=== PATIENT | female | born 1930 | race Native Hawaiian/Other Pacific Islander ===

== ENCOUNTER 2016-02-20 12:20 | Outpatient (CLI) | payer OTHER, MEDICARE ==
[~2016-02-20 12:20] MED LIST: AMLO2.5T PO; HYZAAR1 TA1 PO; LORAZEPAM1 MG PO; ONDA4TAB3 PO; PREDNISONE1 MG PO; PROAIR HFA IN; SENNA1 TAB PO; ULTRAM ER100 MG PO; VICODIN HP1 TA1 PO; ZOLOFT25 MG PO; [UNRECOGNIZED DRUG - OTHER] PO
== END 2016-02-20 19:16 | disposition home or self-care (01) ==
LOC: LAB 12:20
DX: I10 Essential (primary) hypertension (principal); N39.0 Urinary tract infection, site not specified; Z48.3 Aftercare following surgery for neoplasm
CPT/HCPCS: 81000; 87088

== ENCOUNTER 2016-07-10 21:35 | Outpatient (CLI) | payer OTHER, MEDICARE | END 2016-07-10 22:20 | disposition short-term general hospital (02) | LOC: AMB 21:35 | DX: R41.82 Altered mental status, unspecified (principal); R53.1 Weakness | CPT/HCPCS: A0425; A0427 ==

== ENCOUNTER 2016-09-10 08:12 | Outpatient (CLI) | payer OTHER, MEDICARE ==
[2016-09-10] MEDS ORDERED: TIZA4TAB5 PO (09:10)
[2016-09-10] MEDS ORDERED: MOBIC15 MG PO (09:10)
[2016-09-10] MEDS ORDERED: LYRICA225 MG OR (09:11)
[2016-09-10] MEDS ORDERED: POTA20TA4 PO (09:12)
[2016-09-10] MEDS ORDERED: DULO60CA2 OR (09:13)
[2016-09-10] MEDS ORDERED: DONE5TAB PO (09:14)
== END 2016-09-10 08:19 | disposition short-term general hospital (02) ==
LOC: AMB 08:12
DX: R40.20 Unspecified coma (principal); I48.91 Unspecified atrial fibrillation
CPT/HCPCS: A0425; A0427

== ENCOUNTER 2016-09-10 08:19 | Inpatient (IN) | payer OTHER, MEDICARE ==
[~2016-09-10] VITALS: Ht 157.5 cm; Wt 85.4 kg
[2016-09-10] VITALS (17 sets, daily range): BP systolic 89–114; BP diastolic 54–84; TEMP 97.9–102.2; Ht 157.5 cm; Wt 85.4 kg
[2016-09-10 09:06] LABS: PLATELET COUNT 205 K/uL (152-353)
[2016-09-10 09:08] LABS: POTASSIUM 3.4 mmol/L (3.6-5.2)
[2016-09-10] MEDS ORDERED: MOBIC15 MG PO (09:10)
[2016-09-10] MEDS ORDERED: TIZA4TAB5 PO (09:10)
[2016-09-10] MEDS ORDERED: LYRICA225 MG OR (09:11)
[2016-09-10] MEDS ORDERED: POTA20TA4 PO (09:12)
[2016-09-10] MEDS ORDERED: DULO60CA2 OR (09:13)
[2016-09-10] MEDS ORDERED: DONE5TAB PO (09:14)
--- NOTE | 2016-09-10 13:15 | NUR ---
RECEIVED PT TO ICU 1 VIA STRETCHER. RECEIVED REPORT FROM AMBER OLSON RN. TRANSFERRED PT TO ICU BED. PT AWAKE AND ASKING WHAT WE ARE DOING. ORIENTED PT TO ROOM SURROUNDINGS. PLACED PT ON MONITORS. A FIB NOTED ON THE MONITOR. HR 90-130'S. O2 @ 2L/NC. V/S STABLE. O2 @ 2L/NC. PT HAS A PAC TO [facility], NS @ 83ML/HR. PT ADMITTED WITH A FIB WITH RVR, SEPSIS, PNEUMONIA. AX TEMP 98.6.
--- NOTE | 2016-09-10 13:30 | NUR ---
16F TANNER CATH INSERTED VIA [employer] PER DANNY HOROWITZ RN. CLEAR YELLOW URINE OUTPUT NOTED. PLACED TO BSD.
--- NOTE | 2016-09-10 15:00 | NUR ---
LABS DRAWN. PT WILL OPEN EYES WHEN NAME IS CALLED. PT IS VERY DROWSY. NOSE SWAB DONE. PT DID NOT RESPOND TO SWAB.
--- NOTE | 2016-09-10 16:00 | NUR ---
AT BEDSIDE. PT RESTING QUIETLY WITH EYES CLOSED. WILL CONTINUE TO MONITOR.
[2016-09-10 16:19] LABS: PARTIAL THROMBOPLASTIN TIME 24.2 SECONDS (24.5-33.6)
--- NOTE | 2016-09-10 20:04 | NUR ---
RCD PT ROUSES TO NAME SPEECH CLEAR MONITOR AT FIB O2 AT 2L NC RESTING. HOB 45 TANNER CLEAR YELLOW.
--- NOTE | 2016-09-10 21:00 | NUR ---
TURNED AND REPOSITIONED SPEECH CLEAR MONITOR AFIB O2 100%. NO C/O AT THIS TIME .
--- NOTE | 2016-09-10 23:31 | NUR ---
DR SIU CALLED NEW ORDERS ATTEMPTED TO START IV UN SUCESSFAL BLOOD TO LAB PT,PTT
[2016-09-10 23:50] LABS: PARTIAL THROMBOPLASTIN TIME 30.2 SECONDS (24.5-33.6)
[2016-09-11] VITALS (23 sets, daily range): BP systolic 88–125; BP diastolic 47–88; TEMP 98.1–100.6
--- NOTE | 2016-09-11 00:30 | NUR ---
ATTEMPTED X8 SITE CARE GIVEN DR SIU NOTIFIED D/C HEPARIN RESTARTED LOVENOX. PT MAURO PROCEDURE.
--- NOTE | 2016-09-11 01:18 | NUR ---
AWAKE /ALERT SPEECH CLEAR MOVING ALL EXT WEAK . HOB ELEVATED 45
--- NOTE | 2016-09-11 02:00 | NUR ---
TURNED AND REPOSITIONED ALERT WHEN ROUSED DENIES PAIN OR SOB
--- NOTE | 2016-09-11 04:00 | NUR ---
LEGS AND FEET ELEVATED ON PILLOWS FOLLOWS COMMANDS MONITOR AFIF 88 O2 AT 2L N/C .
--- NOTE | 2016-09-11 05:32 | NUR ---
RESP TX GIVEN MAURO RESTNG AT PRESENT
[2016-09-11 06:40] LABS: PLATELET COUNT 187 K/uL (152-353)
--- NOTE | 2016-09-11 07:00 | NUR ---
REPORT FROM FROM PM STAFF. PT RESTING IN LF,WANTS HER CALLED, HER HAS CALLED TO CK ON PT,INFORMED HER THAT HE WOULD BE UP HERE TO SEE HER SOON.
[2016-09-11 07:03] LABS: POTASSIUM 3.7 mmol/L (3.6-5.2)
--- NOTE | 2016-09-11 10:09 | NUR ---
SPEECH IN TO EVAL PT. WILL BE BACK TO [facility] AT LUNCH.
--- NOTE | 2016-09-11 11:52 | NUR ---
DR. SIU HERE TO SEE PT.
--- NOTE | 2016-09-11 12:05 | NUR ---
DR SIU IN TO SEE PT.NEW ORDERS.
--- NOTE | 2016-09-11 12:13 | NUR ---
& FAMILY IN TO VISIT.
--- NOTE | 2016-09-11 13:20 | NUR ---
GUANACO HOLLINGSWORTH LABOR RELATIONS OFFICER HERE FOR ECHO.
--- NOTE | 2016-09-11 13:51 | NUR ---
ECHO DONE PER RT WINTER HOLLINGSWORTH & SPEECH AT BS CHECKING PT'S SWALLOWING.
--- NOTE | 2016-09-11 13:53 | NUR ---
DANIEL ANGLIN HERE TO EVALUATE PT.
--- NOTE | 2016-09-11 17:02 | NUR ---
PT RESTING QUIETLY WITH EYES CLOSED. AMIODORONE DRIP INFUSING WITHOUT PROBLEMS PER DR'S ORDERS. DENIES PAIN AT THIS TIME.
[2016-09-11 19:09] LABS: POTASSIUM 3.4 mmol/L (3.6-5.2)
--- NOTE | 2016-09-11 19:30 | NUR ---
RESPIRATORY THERAPIST AT BEDSIDE FOR TREATMENT.
--- NOTE | 2016-09-11 19:53 | NUR ---
PM ASSESSMENT COMPLETED. PT TALKING WITH NURSE, CONFUSED AT TIMES. SIPS OF WATER GIVEN. PT TOLERATED WELL.
--- NOTE | 2016-09-11 22:36 | NUR ---
PT C/O BACK PAIN. PAIN SCALE 7. MEDICATED WITHDILAUDID 0.5MG IV ORDERED
[2016-09-12] VITALS (21 sets, daily range): BP systolic 82–139; BP diastolic 42–89; TEMP 98–99.2
--- NOTE | 2016-09-12 | NUR ---
PT RESTING QUIETLY PAST PAIN MEDICATION. RESP EVEN AND UNLABORED.
--- NOTE | 2016-09-12 05:38 | NUR ---
LABS DRAWN FROM IV PORT. TO LAB
[2016-09-12 06:28] LABS: POTASSIUM 3.2 mmol/L (3.6-5.2)
[2016-09-12 06:34] LABS: PLATELET COUNT 175 K/uL (152-353)
--- NOTE | 2016-09-12 07:39 | NUR ---
PT C/O PAIN IN LEGS 'WHEN MOVED', PT ASSISTED TO TURN FOR PERICARE SM LOOSE YELLOW BM. PT MEDICATED WITH PO MEDS PER DRS ORDERS.
--- NOTE | 2016-09-12 09:15 | NUR ---
PT SITTING UP IN BED FEEDING SELF BREAKFAST AFTER TRAY WAS SET UP FOR PT. 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
--- NOTE | 2016-09-12 10:57 | NUR ---
PT C/O PAIN IN LEGS & HIPS ,MEDICATED WITH DILAUDID IV PER DR'S ORDER. PT WITH INCONTINENT BM,SPECIMEN OBTAINED & TO LAB,PERICARE, CALAZIME PROTECTIVE BARRIER APPLIED TO PERIAREA.
--- NOTE | 2016-09-12 11:21 | NUR ---
PT REQUEST TO TALK WITH HER NEPHEW,PHONE DIALED NUMBER PT REQUEST PER KELVIN FERNANDEZ RN. PT TALKING WITH NEPHEW.
--- NOTE | 2016-09-12 11:45 | NUR ---
DR SIU IN TO SEE PT.NEW ORDERS.
--- NOTE | 2016-09-12 12:12 | NUR ---
CONSENT OBTAINED FOR BLOOD TRANSFUSION FROM PT WITH AT ,P TINSISTED ON SIGNING HERSELF,SIGNATURE ALMOST UNREADABLE. STATES,'SHE'S HAD BLOOD BEFORE,SHE HAD SOME A FEW WEEKS AGO IN [place]'.
--- NOTE | 2016-09-12 14:25 | NUR ---
FIRST UNIT BLOOD STARTED EXPLAINED PROCEDURE TO PT. MAURO WELL IV FLUIDS STOPPED, WHILE BLOOD INFUSING. PT RESTING QUIETLY PAIN MEDS EFFECTIVE.
--- NOTE | 2016-09-12 15:16 | NUR ---
PT MEDICATED WITH PO AMIODARONE 100MG PER KELVIN FERNANDEZ RN. AMIODARONE DRIP STOPPED PER ORDER.
--- NOTE | 2016-09-12 16:45 | NUR ---
NOTED PT CONFUSED AT TIMES REORIENTED TO HOSPITAL AND ICU. CLOSE FRIEND HERE VISITED, ATTEMPT TO REORIENT PATIENT. TALKING WITH PT ATTEMPT TO KEEP HER CALM.
--- NOTE | 2016-09-12 17:10 | NUR ---
2ND BLOOD STARTED EXPLAINED PROCEDURE TO PT. PT RESTING QUIETLY. NO BLEEDING NOTED.
--- NOTE | 2016-09-12 18:31 | NUR ---
PT WITH INCONTINENT BM,PERICARE,GOWN CHANGE. REFUSES TO EAT SUPPER AT THIS TIME,'I WILL LATER'.
--- NOTE | 2016-09-12 19:37 | NUR ---
PT ASK FOR HER PM MEDICATIONS AND HER PAIN MED. PT WAS MEDICATED WITH DILAUDID 0.5 IVSP. PT WAS CLEANED. NO SKIN BREAKDOWN NOTED TO BUTTOCKS. INCONTINENT OF BM. PT WAS REPSOTIONED IN BED.
[2016-09-13] VITALS (15 sets, daily range): BP systolic 88–143; BP diastolic 46–92; TEMP 97.6–98.8
--- NOTE | 2016-09-13 03:03 | NUR ---
PT INCONTINENT OF STOOL. PT WAS CLEANED. PT BUTTOCKS WITH NO SKIN BREAKDOWN. CALAZIME APPLIED. PT COMPLAINED OF PAIN AND WAS MEDICATED WITH DILAUDID 0.5 MG IVSP GIVEN
[2016-09-13 06:53] LABS: PLATELET COUNT 174 K/uL (152-353)
[2016-09-13 07:55] LABS: POTASSIUM 3.8 mmol/L (3.6-5.2)
--- NOTE | 2016-09-13 09:00 | NUR ---
ASSSITED WITH POSITION CHANGE. PT INC OF LIQUID STOOL, CLEANED TURNED AMADA CARE DONE. PT ATE 25 BREAKFAST, STATES THAT SHE HAS BEEN HAVING LIQUID STOOL AFTER EATING WILL CONTINUE TO MONITOR. NOTED MILD CONFUSION.
--- NOTE | 2016-09-13 11:33 | NUR ---
RESTING QUIETLY NO ACUTE DISTRESS, BLOOD SUGAR 109.
--- NOTE | 2016-09-13 15:20 | NUR ---
DR SIU AT BS
--- NOTE | 2016-09-13 17:45 | NUR ---
PT INCONT OF STOOL, PT STATES THAT SHE DOESNT KNOW WHEN THE STOOL IS COMING OUT. STOOL APPEARS TO BECOMING FROM THE VAGINAL AREA AT TIMES, STOOL ALSO NOTED AT THE ANUS. PT HAS HAD VAGINAL CANCER, HAS NEVER BEEN TOLD THAT SHE HAS A FISTULA AND IS NOT AWARE THAT SHE HAS EVER HAD STOOL COMING FROM THIS AREA
--- NOTE | 2016-09-13 18:30 | NUR ---
PT TRANSFERRED TO MED SURG RM 1109. PT AWAKE. NO C/O AT THIS TIME. CONT TO BE IN A-FIB. HR 88-110
--- NOTE | 2016-09-13 18:36 | NUR ---
R CW PAC INTACT, FLUIDS INFUSING W/O DIFF. TANNER TO BSD.
[2016-09-14] VITALS: BP 122/54; TEMP 97.6
[2016-09-14 04:00] VITALS: BP 138/86; TEMP 97.6
[2016-09-14 05:27] LABS: PLATELET COUNT 181 K/uL (152-353)
[2016-09-14 05:44] LABS: POTASSIUM 3.7 mmol/L (3.6-5.2)
[2016-09-14 08:00] VITALS: BP 129/63; TEMP 97.8
[2016-09-14 12:00] VITALS: BP 137/58; TEMP 98.9
--- NOTE | 2016-09-14 12:15 | NUR ---
DC INSTRUCTIONS GIVEN TO PT AND . INSTRUCTED TO MAKE FOLLOW UP APPTS. SAID THEY HAD APPT WITH CANCER DOCTOR AND INTERNET NETWORK SPECIALIST. INSTRUCTED TO MAKE FOLLOW UP WITH PCP IN 3-5 DAYS. IV DC'D WITH CANNULA INTACT AND SITE CARE PROVIDED. PAC FLUSHED WITH NS AND HEPARIN PER PROTOCOL. DC'D AND SITE CARE PROVIDED.
--- NOTE | 2016-09-14 14:00 | NUR ---
PT LEFT VIA WC AT THIS TIME. NAD NOTED
== END 2016-09-14 13:55 | disposition home or self-care (01) | DRG 872 ==
LOC: ED 08:19 → ICU 11:14 → MED/SURG 09-13 18:00
PROVIDERS: Internal Medicine
PROC: 30243N1 Transfusion of Nonautologous Red Blood Cells into Central Vein, Percutaneous Approach (ICD-10-PCS; principal; 2016-09-12)
DX: A40.1 Sepsis due to streptococcus, group B (principal); N17.9 Acute kidney failure, unspecified; I48.91 Unspecified atrial fibrillation; I95.89 Other hypotension; D53.9 Nutritional anemia, unspecified; B95.1 Streptococcus, group B, as the cause of diseases classified elsewhere; R50.9 Fever, unspecified; M79.7 Fibromyalgia; J44.9 Chronic obstructive pulmonary disease, unspecified; I12.9 Hypertensive chronic kidney disease with stage 1 through stage 4 chronic kidney disease, or unspecified chronic kidney disease; N18.3 Chronic kidney disease, stage 3 (moderate)
CPT/HCPCS: 36415; 36430; 36591; 36600; 51702; 80048; 80053; 80202; 81000; 82272; 82550; 82570; 82607; 82747; 82805; 82962; 83605; 83690; 83735; 83880; 84300; 84443; 84484; 85027; 85379; 85610; 85651; 85730; 86140; 86850; 86900; 86901; 86922; 87015; 87040; 87045; 87070; 87077; 87185; 87186; 87205; 87328; 87329; 87899; 93005; 93306; 94640; 94664; 94760; 96361; 96365; 96366; 96372; 99285; J0132; J0282; J1170; J1642; J1644; J1650; J2543; J3475; J3490; P9016

== ENCOUNTER 2016-11-06 13:03 | Outpatient (CLI) | payer OTHER, MEDICARE ==
[~2016-11-06 13:03] MED LIST changes: +DONE5TAB PO; +DULO60CA2 OR; +LYRICA225 MG OR; +MOBIC15 MG PO; +POTA20TA4 PO; +TIZA4TAB5 PO
== END 2016-11-06 19:08 | disposition home or self-care (01) ==
LOC: LAB 13:03
DX: N39.0 Urinary tract infection, site not specified (principal)
CPT/HCPCS: 81000; 87077; 87086; 87088; 87186

== ENCOUNTER 2016-12-13 08:21 | Inpatient (IN) | payer OTHER, MEDICARE ==
[~2016-12-13] VITALS: Ht 157.5 cm; Wt 74.8 kg
[2016-12-13] VITALS (7 sets, daily range): BP systolic 96–137; BP diastolic 58–67; TEMP 97.6–103.2; Ht 157.5 cm; Wt 74.8 kg
[2016-12-13 09:34] LABS: PLATELET COUNT 198 K/uL (152-353)
[2016-12-13 09:36] LABS: POTASSIUM 3.6 mmol/L (3.6-5.2); SODIUM 138 mmol/L (136-145)
[2016-12-13] MEDS ORDERED: HYDR-3182 PO (13:11)
[2016-12-14 08:00] VITALS: BP 123/49; TEMP 97.9
[2016-12-14 10:29] LABS: POTASSIUM 3.3 mmol/L (3.6-5.2)
[2016-12-14 10:34] LABS: PLATELET COUNT 144 K/uL (152-353)
[2016-12-14 12:00] VITALS: BP 111/46; TEMP 97.8
[2016-12-14 16:00] VITALS: BP 114/41; TEMP 99.1
[2016-12-15 07:07] LABS: PLATELET COUNT 145 K/uL (152-353)
[2016-12-15 08:55] VITALS: BP 139/49; TEMP 98.3
[2016-12-15 20:00] VITALS: BP 145/59; TEMP 98.6
[2016-12-16 04:15] VITALS: BP 158/60; TEMP 98.6
[2016-12-16 06:26] LABS: PLATELET COUNT 153 K/uL (152-353)
[2016-12-16 08:32] VITALS: BP 145/57; TEMP 98
== END 2016-12-16 15:00 | disposition home or self-care (01) | DRG 864 ==
LOC: ED 08:21 → MED/SURG 12:34
PROVIDERS: Specialist
DX: R50.9 Fever, unspecified (principal); E46 Unspecified protein-calorie malnutrition; B34.9 Viral infection, unspecified; R19.7 Diarrhea, unspecified; R53.1 Weakness; I48.91 Unspecified atrial fibrillation; R60.0 Localized edema; D64.89 Other specified anemias; G47.09 Other insomnia; C51.9 Malignant neoplasm of vulva, unspecified; D70.8 Other neutropenia; M79.7 Fibromyalgia; H54.7 Unspecified visual loss; N18.3 Chronic kidney disease, stage 3 (moderate)
CPT/HCPCS: 36415; 80053; 81000; 82272; 82550; 82553; 83605; 84484; 85027; 85610; 85730; 87015; 87045; 87205; 87899; 93005; 96365; 96366; 96367; 96372; 96375; 99284; J1885; J1940

== ENCOUNTER 2016-12-28 12:50 | Inpatient (IN) | payer OTHER ==
[~2016-12-28] VITALS: Ht 160 cm; Wt 74.5 kg
[~2016-12-28 12:50] MED LIST changes: +HYDR-3182 PO
[2016-12-28 15:27] VITALS: BP 104/40; TEMP 97.9; Ht 160 cm; Wt 74.5 kg
[2016-12-29 08:00] VITALS: BP 123/50; TEMP 98.1
[2016-12-30 08:00] VITALS: BP 138/61; TEMP 97.9
--- NOTE | 2016-12-30 12:34 | NUR ---
0900 ALL HOME PO MEDS HELD AT THIS TIME DUE TO PT BEING UNABLE TO SWALLOW. AT BS AND VERBLIZES UNDERSTANDING. AWARE
--- NOTE | 2016-12-30 12:35 | NUR ---
1200 PT'S REQUESTED FOR PT TO HAVE DIET. EXPLAINED TO HIM IN LENGTH RISK INVOLED OF FEEDING PT DUE TO INABILITY TO SWALLOW. VERBALIZED UNDERSTANDING. PT RESTING Q;UIETLY IN BED. NO CO OR S/S OF PAIN NOTED. PT TURNED EVERY 2 HRS AT THIS TIME.
--- NOTE | 2016-12-30 14:19 | NUR ---
1420 HOSPICE NURSE HERE AT THIS TIME TO DELIVER ROXANOL. FIRST DOSE GIVEN PER HOSPICE NURSE AT THIS TIME. PT RESTING QUIETLY IN BED. NO DISTRESS OR CHANGES NOTED. WILL CON'T TO MONITOR
--- NOTE | 2016-12-31 09:08 | NUR ---
PT MOUTH DRY AT THIS TIME. PT MORE ALERT. SIPS OF WATER PROVIDED. PT STATED SHE WANTED SOMETHING TO EAT. SMALL BITES OF PUDDING GIVEN, AT BS. PT TOLERATED WELL. NO COUGHING NOTED.
--- NOTE | 2016-12-31 10:30 | NUR ---
PT RECIEVED BATH PER PCT AND LINEN CHANGE. PT BEING TUNRED Q2 HOURS AND NEEDED FOR COMFORT.
--- NOTE | 2016-12-31 10:50 | NUR ---
HOSPICE NURSE HERE AT THIS TIME.
--- NOTE | 2016-12-31 11:00 | NUR ---
HOSPICE NURSE INSERTED TANNER CATHETER AT THIS TIME. 14 UZBEK. CLEAR YELLOW URINE NOTED TO BSD.
[2017-01-01 08:00] VITALS: BP 146/58; TEMP 98.7
--- NOTE | 2017-01-01 23:53 | NUR ---
PATIENT IS SLEEPING. NO DISTRESS NOTED.
--- NOTE | 2017-01-02 01:15 | NUR ---
PATIENT IS SLEEPING. NO DISTRESS NOTED.
--- NOTE | 2017-01-02 03:03 | NUR ---
BRIEF CHANGED. POSITIONED ON RT SIDE. NO DISTRESS NOTED.
--- NOTE | 2017-01-02 05:20 | NUR ---
PATIENT IS SLEEPING. NO DISTRESS NOTED.
[2017-01-02 08:00] VITALS: BP 137/858; TEMP 99
--- NOTE | 2017-01-02 11:29 | NUR ---
1130 ALL HOME MEDS GIVEN TO PT'S . EXPLAIEND THAT HOPCE NURSE WOULD MEET THEM HOME AND GO OVER AND EXPLAIN ABOUT PRN MEDS TO GIVE. PT LEFT VIA STRECTHER WITH TRANSPORT NO ACUTE DISTRESS NTOED
== END 2017-01-02 11:20 | disposition home or self-care (01) | DRG 951 ==
LOC: MED/SURG 12:50
PROVIDERS: ADMIT Internal Medicine
DX: Z51.5 Encounter for palliative care (principal); Z75.5 Holiday relief care